=== PATIENT | female | born 1995 | race Caucasian/White ===

== ENCOUNTER 2017-01-23 20:34 | Emergency (ER) | payer OTHER ==
--- NOTE | ~2017-01-23 | ER ---
[facility] AGE: 21 Y [address] ROOM: [place] [address] LOCATION: [facility] ADMIT DATE: 01/23/2017 ER/Outpatient Report DISCHARGE DATE: 01/23/2017 FAMILY PHYSICIAN: Adolfo Meyer ATTENDING PHYSICIAN: Marcelino Tong Time of Arrival: 2033 hours. Time of Evaluation: 2054 hours. CHIEF COMPLAINT: Arm injury. HISTORY OF PRESENT ILLNESS: A 21-year-old female presents to the ER, who states that she was bucked off her friend's horse and landed on her right arm funny. She states it does not hurt in her neck, her back, her abdomen or any other extremities. She states the only place that hurt is her right forearm and right elbow. She states she has never injured her arm before like this. She denies any other problems at this time. ALLERGIES: PERTUSSIS. MEDICATIONS: Please see medication list in nurse's notes. PAST MEDICAL HISTORY: Negative. PAST SURGERIES: None. SOCIAL HISTORY: Smokes 3 to 4 cigarettes a day. Chews a can of tobacco every couple of weeks. Drinks alcohol rarely. REVIEW OF SYSTEMS: All systems were reviewed and were negative with the exception of those discussed in the HPI. PHYSICAL EXAMINATION: VITAL SIGNS: Height 5 feet 5 inches stated, weight 54.6 kg taken, blood pressure is 110/79, pulse 74, respirations 16, temperature 97.7 degrees tympanically, and saturations 100% on room air. [place] Coma Score is 15. GENERAL: Alert, calm, well-developed female, in mild distress. PATIENT'S NAME: [facility]ED [facility] AGE: 21 Y [address] ROOM: [place], [place] [address] LOCATION: [facility] ADMIT DATE: 01/23/2017 ER/Outpatient Report DISCHARGE DATE: 01/23/2017 FAMILY PHYSICIAN: Adolfo Meyer ATTENDING PHYSICIAN: Marcelino Tong HEENT: Head: Normocephalic. She does display moist mucous membranes. LUNGS: Clear to auscultation bilaterally. HEART: Regular rate and rhythm. MUSCULOSKELETAL: She has no tenderness to palpation over her cervical, thoracic, or lumbar spine. She does have full range of motion of her left upper extremity and her lower extremities with no difficulty. She does have tenderness with supination and pronation of her right forearm. She does have some tenderness with palpation in her right elbow and her right wrist. She has good pulses bilaterally in upper extremities. NEURO: Cranial nerves 2 through 12 grossly intact. Gait is steady without assistance. LABORATORY DATA AND X-RAYS: Labs: None were done. X-rays of the right upper extremity were done and show a right radial head fracture. IMPRESSION: Right radial head fracture. ASSESSMENT AND PLAN: Discussed the patient's care with Dr. Tong. We will place her in a shoulder immobilizer for support and stabilization. We will have her ice and elevate the arm. We will send her home with a prescription for Millis to use as directed. She may alternate that as needed with ibuprofen. I did write her for a work note that will allow her to work with light duty until she is cleared by orthopedic. The patient needs to follow up with her orthopedic of choice within the next week or sooner. The patient and the patient's boyfriend understand and agree with care. JAKE MORRIS PA-C FOR MD ANNMARIE ALVARADO/urvashi /[id number] d: t: 01/26/17 1311, OUTPATIENT REPORT
== END 2017-01-23 21:35 | disposition disaster alternative care site (69) ==
LOC: GACC 20:34
DX: S52.121A Displaced fracture of head of right radius, initial encounter for closed fracture (principal); S52.131A Displaced fracture of neck of right radius, initial encounter for closed fracture; F17.210 Nicotine dependence, cigarettes, uncomplicated; F17.220 Nicotine dependence, chewing tobacco, uncomplicated; Z88.8 Allergy status to other drugs, medicaments and biological substances; V80.010A Animal-rider injured by fall from or being thrown from horse in noncollision accident, initial encounter